=== PATIENT | male | born 1955 ===

== ENCOUNTER 2017-12-08 05:40 | Day surgery (SDC) | payer OTHER ==
[~2017-12-08 05:40] MED LIST: AVAPRO150 MG PO; LIPITOR20 MG PO; TAMS0.4C PO
[2017-12-08] MEDS ORDERED: ULTRACET PO (09:21)
[2017-12-08] MEDS ORDERED: MIRALAX17 GM PO (09:21)
[2017-12-08] MEDS ORDERED: NEURONTIN300 MG PO (09:21)
== END 2017-12-08 13:10 | disposition home or self-care (01) ==
LOC: CIR.AMB 05:40
DX: K40.91 Unilateral inguinal hernia, without obstruction or gangrene, recurrent (principal)

== ENCOUNTER 2020-12-25 05:44 | Day surgery (SDC) | payer OTHER ==
[~2020-12-25 05:44] MED LIST changes: +ATORVASTATIN CA20 MG PO; +LOSARTAN-HCTZ1 EAC1 PO; +MIRALAX17 GM PO; +NEURONTIN300 MG PO; +ULTRACET PO
[2020-12-25] MEDS ORDERED: PERCOCET 5-3251 EACH PO (09:32)
[2020-12-25] MEDS ORDERED: NEURONTIN600 M1 PO (09:33)
[2020-12-25] MEDS ORDERED: COLACE100 MG PO (09:35)
== END 2020-12-25 11:20 | disposition home or self-care (01) ==
LOC: CIR.AMB 05:44
PROVIDERS: ATTEND Surgery
DX: K40.90 Unilateral inguinal hernia, without obstruction or gangrene, not specified as recurrent (principal); D17.6 Benign lipomatous neoplasm of spermatic cord; Z20.822 Contact with and (suspected) exposure to COVID-19